=== PATIENT | female | born 1960 | race Hispanic/Latino ===

== ENCOUNTER 2016-11-22 12:00 | Outpatient (CLI) | payer OTHER ==
--- NOTE | 2016-11-23 08:36 | Mammography Report ---
BILATERAL DIGITAL SCREENING MAMMOGRAM with CAD: 11/22/16 CLINICAL: Routine screening.Breast cancer survivor status post right partial mastectomy with radiation therapy and chemotherapy in 2010. COMPARISON:None available. However, a prior mammogram was apparently done in [place], [place]. FINDINGS: The breasts are heterogeneously dense, which may obscure small masses. Right posterior surgical scar at 6:30 to 7 o'clock. Bilateral calcifications have benign morphology. A right asymmetry on the CC view requires comparison with the prior mammogram or additional imaging.No architectural distortion or suspicious calcifications.The left breast is negative. IMPRESSION: Right asymmetry requiring further evaluation. BI-RADS CATEGORY: 0 -- Additional Evaluation Required RECOMMENDATION: Comparison with a previous mammogram. We will attempt to obtain a prior mammogram from [place], [place]. If we do not obtain a prior mammogram for comparison within 30 days, a revised report will be issued recommending a recall for additional imaging of the right breast. Please be advised that the patient should not schedule an appointment for return until adequate time (at least 2 weeks) has passed for us to obtain the prior mammogram. ACR BI-RADS MAMMOGRAPHIC CODES: 0 = Needs additional imaging evaluation; 1 = Negative; 2 = Benign; 3 = Probably benign; 4 = Suspicious; 5 = Malignant; 6 = Known biopsy-proven malignancy COMMENT: 1. Dense breast tissue, i.e., adenosis, fibrocystic changes, etc., may obscure an underlying neoplasm. 2. Approximately 10% of cancers are not detected with mammography. 3. A negative mammography report should not delay biopsy if a clinically suspicious mass is present. COMMENT: Patient follow-up letters are generated via our [employer] application.
== END 2016-11-22 12:01 | disposition home or self-care (01) ==
LOC: SPVWC 12:00
DX: Z12.31 Encounter for screening mammogram for malignant neoplasm of breast (principal); Z90.11 Acquired absence of right breast and nipple
CPT/HCPCS: 77067; G0202

== ENCOUNTER 2017-04-28 11:10 | Outpatient (CLI) | payer OTHER ==
--- NOTE | 2017-04-28 11:51 | XRay Report ---
Bilateral hips and AP pelvis: Bilateral hip pain. AP and frog lateral views of the chest demonstrate normal positioning of the hips with good preservation of the articular margins and joint spaces. Minimal calcification is identified just inferior to the lateral margin of the left acetabulum. The SI joints and AP pelvis appear grossly normal. The bones are well-mineralized. Impression: Suggestion of minimal degenerative changes involving the superior-lateral left hip joint. Lumbar spine: Back pain. AP and lateral views demonstrates anterior spurring at L1-2 and mild spurring at the superior and inferior margins of L4. There is interspace narrowing at L1-2, L4-5, and L5-S1 levels. There is a mild focal rotational scoliosis to the left involving L3 and L4. Mild apophyseal sclerosis is present at L5-S1. The bones are generally well-mineralized. Impression: Multiple levels of degenerative bone and disc changes as described. No acute finding suspected.
== END 2017-04-28 11:11 | disposition home or self-care (01) ==
LOC: SPVIMAG 11:10
DX: M16.12 Unilateral primary osteoarthritis, left hip (principal); M25.852 Other specified joint disorders, left hip; M25.851 Other specified joint disorders, right hip; M41.86 Other forms of scoliosis, lumbar region; M47.896 Other spondylosis, lumbar region; M53.86 Other specified dorsopathies, lumbar region
CPT/HCPCS: 72100; 73521

== ENCOUNTER 2019-06-07 14:35 | Outpatient (CLI) | payer OTHER ==
--- NOTE | 2019-06-07 16:16 | XRay Report ---
HISTORY:LEFT SHOULDER PAIN COMPARISON: None. TECHNIQUE: AP lateral and Y views were obtained FINDINGS: Bones: No fracture or dislocation. Joint spaces: Maintained. Soft tissues: No significant abnormality. Additional findings: None. IMPRESSION: 1. No significant abnormality. Signer Name: Jonny Aguilar MD Signed: 06/07/2019 4:12 PM Workstation Name: [id number]
--- NOTE | 2019-06-07 16:25 | XRay Report ---
CHEST 2 VIEWS INDICATION: BRONCHITIS. COMPARISON: None. FINDINGS: Support devices: None. Heart: Within normal limits. Lungs/Pleura: No acute infiltrate. Mild scarring at the upper lobes bilaterally. No significant ple ural effusion. IMPRESSION: No acute findings. Signer Name: Bryce Kearney MD Signed: 06/07/2019 4:21 PM Workstation Name: [id number]
== END 2019-06-07 14:36 | disposition home or self-care (01) ==
LOC: SPVIMAG 14:35
PROVIDERS: ATTEND Urology
DX: J20.9 Acute bronchitis, unspecified (principal); M25.512 Pain in left shoulder
CPT/HCPCS: 71046

== ENCOUNTER 2019-09-05 12:16 | Outpatient (CLI) | payer OTHER ==
--- NOTE | 2019-09-05 15:43 | Magnetic Resonance Report ---
MR UE joint LT wo con INDICATION / CLINICAL INFORMATION: MAIN: LIMITED RANGE OF MOTION/ PT STATES HER SHOULDER IS DISLOCATED 726.10Disorders of bursae and ten dons in shoulder region, unspeci. TECHNIQUE: Multiplanar, multisequence MR images were obtained. COMPARISON: Radiographs 06/07/2019 FINDINGS: No acute fracture, bone contusion, or dislocation. There is no significant AC degenerative change. However, enthesopathy of the coracoacromial ligament and laterally downsloping distal acromion results in mild encroachment. There is trace fluid in the s ubdeltoid/subacromial bursa. Supraspinatus and infraspinatus tendinosis is noted. There is supraspinatus bursal surface fraying. N o discrete rotator cuff tendon tear is seen. There is no rotator cuff muscle edema or atrophy. Long head biceps tendon is intact. There is mild glenohumeral degenerative change with degenerative fraying of the glenoid labrum. No pa ra labral cyst. There is diffuse cartilage thinning. No joint effusion. IMPRESSION: 1. No acute fracture, contusion, or dislocation. 2. Cuff tendinopathy. 3. Glenohumeral osteoarthrosis. Additional findings as above. Signer Name: Gianfranco Mixon MD Signed: 09/05/2019 3:39 PM Workstation Name: [id number]
== END 2019-09-05 12:17 | disposition home or self-care (01) ==
LOC: MRI 12:16
DX: M19.012 Primary osteoarthritis, left shoulder (principal); M77.9 Enthesopathy, unspecified

== ENCOUNTER 2019-12-31 13:46 | Outpatient (CLI) | payer OTHER ==
--- NOTE | 2019-12-31 14:46 | XRay Report ---
LEFT HUMERUS 2 VIEWS INDICATION: SWELLING LEFT ARM R22.32. COMPARISON: None. IMPRESSION: No acute osseous or soft tissue abnormality. No significant DJD. Signer Name: Xavi Bloom Jr, MD Signed: 12/31/2019 2:42 PM Workstation Name: [id number]
== END 2019-12-31 13:47 | disposition home or self-care (01) ==
LOC: SPVIMAG 13:46
PROVIDERS: ATTEND Urology
DX: R22.32 Localized swelling, mass and lump, left upper limb (principal)